=== PATIENT | female | born 2005 | race Hispanic/Latino ===

== ENCOUNTER 2025-05-30 18:33 | Emergency (ER) | payer OTHER ==
[~2025-05-30] VITALS: Ht 160 cm; Wt 72.7 kg
[2025-05-30 23:29] LABS: KETONE, URINE AUTO RFX NEGATIVE (NEGATIVE); NITRITE, URINE AUTO RFX NEGATIVE (NEGATIVE); RBC, URINE AUTO RFX 1 /HPF (0-3); SQUAM EPITHELIAL CELL UR AURFX 3 /HPF (0-6); WBC, URINE AUTO RFX 6 /HPF (0-3)
[2025-05-30 23:34] LABS: LEUKOCYTE ESTERASE UR AUTO RFX 1+ (NEGATIVE)
[2025-05-31 00:02] LABS: Trichomonas vaginalis (AMP) NOT DETECTED (NEGATIVE)
[2025-05-31 00:29] LABS: GC DNA AMPLIFICATION NEGATIVE (NEGATIVE)
[2025-05-31 00:45] VITALS: BP 103/67; TEMP 96.9; O2SAT 96
== END 2025-05-31 00:47 | disposition home or self-care (01) ==
LOC: M ED 18:33
DX: R21 Rash and other nonspecific skin eruption (principal); Z88.0 Allergy status to penicillin; Z88.1 Allergy status to other antibiotic agents